=== PATIENT | female | born 1940 | race African-American/Black ===

== ENCOUNTER 2017-01-19 20:36 | Inpatient (IN) | payer OTHER ==
--- NOTE | 2017-01-19 20:52 | PDOC ---
Attending Attestation - Resident Resident Name: Shanel Esposito - HPI HPI: 01/19/17 22:24 Pt comes with discomfort in her epigastric chest area. States that she often gets the pain. Pt is A+Ox3. Pt states that she is in the NH temporarily. Not sure why. She is asking me to speak to her daughter who is a nurse. - Physicial Exam PE: 01/19/17 22:25 Upper abd post surgical ventral hernia. Pt has no flank pain no fever, no abd pain with palpation. Pt has crackles and rales at the bases. - Medical Decision Making 01/19/17 23:26 Pt has elevated BNP; renal insufficiencyl elevated lipase ?pancreatitis. Low ca + and Phosphorous. 01/20/17 22:32 Pt was signed out to the next team to follow labs and disposition the patient.
--- NOTE | 2017-01-19 21:14 | PDOC ---
History of Present Illness - General Chief Complaint: Shortness of Breath Stated Complaint: ANXIETY/SOB Time Seen by Provider: 01/19/17 20:38 History Source: Patient Exam Limitations: No Limitations - History of Present Illness Initial Comments: 76 YOF with h/o ESRD on HD TThSa, distant liver transplant on cyclosporine, CHF , anemia, hypoparathyroidism, vitamin deficiency, and anxiety who is BIBA from her SNF for reported anxiety, with the patient noting chest heaviness and shortness of breath. She states that this is actually her normal baseline and she feels no different than normal. She denies nausea, vomiting, diarrhea, constipation, fever, chills, trouble urinating, headache, or other symptoms. She is largely unhelpful with her medical history and the bulk of her history is obtained from [facility] records. Past History - Past Medical History Allergies/Adverse Reactions: Allergies Allergy/AdvReac Type Severity Reaction Status Date / Time No Known Allergies Allergy Verified 01/19/17 20:38 Home Medications: Ambulatory Orders Amlodipine Besylate 10 mg PO DAILY 01/19/17 Cyclosporine 25 mg PO Q12H 01/19/17 Ergocalciferol (Vitamin D2) [Vitamin D2] 50,000 unit PO TH 01/19/17 Folic Acid 1 mg PO DAILY 01/19/17 Metoprolol Succinate [Toprol Xl -] 25 mg PO Q12H 01/19/17 Multivit,Calc,Mins/Iron/Folic [Therapeutic-M Tablet] 400 mcg PO DAILY 01/19/17 Vitamin B Comp W-C [Nephro-Latoya -] 1 tab PO DAILY 01/19/17 Acetaminophen [Non-Aspirin Pain Relief] 325 mg PO Q6H PRN 01/20/17 Albuterol 0.083% Nebulizer Mckayla [Ventolin 0.083% Nebulizer Soln -] 1 neb NEB Q6H PRN 01/20/17 - Suicide/Smoking/Psychosocial Hx Smoking History: Unknown if ever smoked Have you smoked in the past 12 months: No Information on smoking cessation initiated: No Hx Alcohol Use: No Drug/Substance Use Hx: No Review of Systems - Review of Systems Able to Perform ROS?: Yes Constitutional: No: Chills, Fever, Unexplained wgt Loss HEENTM: No: Nose Congestion, Throat Pain Respiratory: Yes: Cough (mild), Shortness of Breath Cardiac (ROS): Yes: Chest Pain (heaviness). No: Palpitations ABD/GI: No: Constipated, Diarrhea, Nausea, Vomiting : No: Burning, Dysuria Musculoskeletal: No: Back Pain, Neck Pain Integumentary: No: Bruising, Rash Neurological: No: Headache, Numbness, Tingling, Weakness, Dizziness Endocrine: No: Unexplained Weight Gain, Unexplained Weight Loss *Physical Exam - Vital Signs Last Vital Signs Temp Pulse Resp BP Pulse Ox 97.5 F L 67 20 141/76 99 01/20/17 18:00 01/20/17 18:00 01/20/17 18:00 01/20/17 18:00 01/20/17 17:41 - Physical Exam General Appearance: Yes: Nourished, Appropriately Dressed, Mild Distress, Other (elderly chronically ill appearing female who has latency in responding to questions and frequently seems to forget to answer, tachypneic and speaking in 3 word sentences) HEENT: positive: EOMI, Normal Voice, Hearing Grossly Normal. negative: Scleral Icterus (R), Scleral Icterus (L), Nasal Congestion Neck: positive: Trachea midline, Supple. negative: Tender, Rigid Respiratory/Chest: positive: Lungs Clear, Normal Breath Sounds. negative: Respiratory Distress, Crackles, Rhonchi, Stridor, Wheezing Cardiovascular: positive: Regular Rhythm, Regular Rate. negative: Murmur Gastrointestinal/Abdominal: positive: Normal Bowel Sounds, Soft. negative: Tender, Organomegaly, Pulsatile Mass, Guarding Musculoskeletal: positive: Normal Inspection. negative: Decreased Range of Motion, Vertebral Tenderness Extremity: positive: Normal Capillary Refill, Normal Inspection, Normal Range of Motion. negative: Tender, Cyanosis Integumentary: positive: Normal Color, Dry, Warm. negative: Erythema, Rash, Bruising Neurologic: positive: solar sales rep II-XII NML intact, Fully Oriented, Alert, Normal Mood/ Affect, Normal Response, Motor Strength 5/5 Heart Score/ECG Review - History History: Moderately suspicious - Electrocardiogram EKG: Non specific repolarization disturbance - Age Age: >/= 65 - Risk Factors Risk Factors Heart Score: Yes Hx Hypertension Based on the list above the patient has:: 1-2 risk factors - Troponin Troponin: 1-3x normal limit - Score Heart Score - Total: 6 ED Treatment Course - LABORATORY CBC & Chemistry Diagram: 01/20/17 09:30 01/20/17 09:30 - ADDITIONAL ORDERS Additional order review: 01/19/17 21:40 RBC 2.75 L MCV 105.5 H MCHC 32.3 RDW 17.3 H MPV 7.7 Neutrophils % 85.8 H Lymphocytes % 8.2 Monocytes % 5.7 Eosinophils % 0.0 Basophils % 0.3 Medical Decision Making - Medical Decision Making 76 YOF with h/o ESRD on HS TThSa, liver xplant on cyclosporine, CHF, anemia, anxiety. P/W chest heaviness, SOB, anxiety but here in ED patient states she feels this all the time. On exam she has crackles to bilateral bases, large ventral hernia through prior surgical scar. 2/6 systolic murmur, otherwise normal exam. DDX IBNLT CHF exacerbation, ACS, PE, PNA/bronchitis. Ordered is CBCD, CMP, Mg, Phos, cardiac profile, BNP, CXR, UA cx. 01/19/17 23:37 01/19/17 23:38 CXR consistent with CHF exacerbation, sternal wires noted. BNP is >150k, lipase >500, BUN 33, Cr 3.3 Page sent to PCP Yash Manning [facility] provider to discuss admission. 01/20/17 02:24 Spoke with [facility] regarding admission to hospitalist as not able to get in touch with Dr. Manning. Patient becoming intermittently agitated, states feels too hot, rectal temp 98.5 , given a fan. Hospitalists to admit. 01/20/17 07:00 Care passed down to oncoming team. *DC/Admit/Observation/Transfer Diagnosis at time of Disposition: CHF exacerbation Qualifiers: Congestive heart failure type: unspecified congestive heart failure type Qualified Code(s): I50.9 - Heart failure, unspecified - Discharge Dispostion Condition at time of disposition: Guarded Admit: Yes - Referrals - Patient Instructions - Post Discharge Activity
[2017-01-19 21:48] LABS: BASOPHIL 0.3 % (0-2.0); MCH 34.1 pg (25.7-33.7); MCHC 32.3 g/dl (32.0-36.0); MEAN CELL VOLUME 105.5 fl (80-96); MEAN PLT VOLUME 7.7 fl (7.5-11.1); NEUTROPHILS 85.8 % (42.8-82.8); PLATELET COUNT 75 K/MM3 (134-434); RDW 17.3 % (11.6-15.6); WHITE BLOOD COUNT 2.2 K/mm3 (4.0-10.0)
[2017-01-19 22:27] LABS: POIKILOCYTOSIS 1+; POLYCHROMASIA RARE
[2017-01-19 22:28] LABS: MACROCYTOSIS 2+; OVALOCYTE 1+
[2017-01-19 22:31] LABS: ALBUMIN 3.1 g/dl (3.4-5.0); ANION GAP 10 (8-16); CALCIUM 7.6 mg/dL (8.5-10.1); CO2 26 mmol/L (21-32); CREATININE 3.3 mg/dL (0.55-1.02); GLUCOSE,RANDOM 179 mg/dL (74-106); MAGNESIUM 1.9 mg/dL (1.8-2.4); PHOSPHOROUS 2.2 mg/dL (2.5-4.9); SGOT/AST 18 U/L (15-37); SGPT/ALT 29 U/L (12-78)
[2017-01-19 22:49] LABS: ALK PHOS 203 U/L (45-117); BILIRUBIN,TOTAL 0.4 mg/dL (0.2-1.0); CPK 47 IU/L (26-192); TOT PROT 6.3 g/dl (6.4-8.2); TROPONIN I 0.07 ng/ml (0.00-0.05)
--- NOTE | 2017-01-20 03:11 | HP ---
CHIEF COMPLAINT: SOB, Chest Heaviness, Anxiety PCP: Dr. Yash Manning HISTORY OF PRESENT ILLNESS: This is a 76 y/o woman with a past medical history of ESRD (HD- ,, ), CHF , HTN, Hyperparathyroidism, Anemia, Anxiety, Vitamin Deficiency. Who presents to the ED from [facility] with anxiety, SOB, chest heaviness. Patient is a poor historian. Obtained information from ED record and senior living records. Patient denies having chest pain/heaviness, she reports her SOB has decreased since having a fan. Patient denies fever, chills, cough, dizziness, AP , N/V/D, constipation. ER course was notable for: (1) Chest Xray- image vascular congestion (2) BNP [id number] (3) Trop I 0.07 Recent Travel: None PAST MEDICAL HISTORY: See HPI PAST SURGICAL HISTORY: Dialysis Catheter- L- Groin Social History: Smoking: Unknown Alcohol: None Drugs: Nine Family History: Unable to obtain Allergies No Known Allergies Allergy (Verified 01/19/17 20:38) HOME MEDICATIONS: Home Medications Medication Instructions Recorded Amlodipine Besylate 10 mg PO DAILY 01/19/17 Cyclosporine 25 mg PO BID 01/19/17 Ergocalciferol (Vitamin D2) 50,000 unit PO WEEKLY 01/19/17 [Vitamin D2] Folic Acid 1 mg PO DAILY 01/19/17 Metoprolol Succinate [Toprol Xl -] 25 mg PO BID 01/19/17 Multivit,Calc,Mins/Iron/Folic 400 mcg PO DAILY 01/19/17 [Therapeutic-M Tablet] Vitamin B Comp W-C [Nephro-Latoya -] 1 tab PO DAILY 01/19/17 Vitamin B Comp W-C [Nephro-Latoay -] 1 tablet PO DAILY 01/19/17 REVIEW OF SYSTEMS CONSTITUTIONAL: Absent: fever, chills, diaphoresis, generalized weakness, malaise, loss of appetite, weight change HEENT: Absent: rhinorrhea, nasal congestion, throat pain, throat swelling, difficulty swallowing, mouth swelling, ear pain, eye pain, visual changes CARDIOVASCULAR: chest pain Absent: syncope, palpitations, irregular heart rate, lightheadedness, peripheral edema RESPIRATORY: shortness of breath Absent: cough, dyspnea with exertion, orthopnea, wheezing, stridor, hemoptysis GASTROINTESTINAL: abdominal distension Absent: abdominal pain, nausea, vomiting, diarrhea, constipation, melena, hematochezia GENITOURINARY: Absent: dysuria, frequency, urgency, hesitancy, hematuria, flank pain, genital pain MUSCULOSKELETAL: Absent: myalgia, arthralgia, joint swelling, back pain, neck pain SKIN: Absent: rash, itching, pallor HEMATOLOGIC/IMMUNOLOGIC: Absent: easy bleeding, easy bruising, lymphadenopathy, frequent infections ENDOCRINE: Absent: unexplained weight gain, unexplained weight loss, heat intolerance, cold intolerance NEUROLOGIC: Absent: headache, focal weakness or paresthesias, dizziness, unsteady gait, seizure, mental status changes, bladder or bowel incontinence PSYCHIATRIC: Absent: anxiety, depression, suicidal or homicidal ideation, hallucinations. PHYSICAL EXAMINATION Vital Signs - 24 hr 01/19/17 20:39 Temperature 97.7 F Pulse Rate 78 Respiratory 22 Rate Blood Pressure 164/86 O2 Sat by Pulse 99 Oximetry (%) GENERAL: Awake, alert, and oriented x1, with marked confusion, in no acute distress. HEAD: Normal with no signs of trauma. EYES: Pupils equal, round and reactive to light, extraocular movements intact, sclera anicteric, conjunctiva clear. No lid lag. EARS, NOSE, THROAT: Ears normal, nares patent, oropharynx clear without exudates. dry mucous membranes. NECK: Normal range of motion, supple without lymphadenopathy, JVD, or masses. LUNGS: Rales, and crackles scattered to bases. No wheezes, and No accessory muscle use. HEART: Regular rate and rhythm, normal S1 and S2 without murmur, rub or gallop. ABDOMEN: Soft, nontender, normoactive bowel sounds, no guarding, no rebound, no masses. No hepatomegaly or splenomegaly. Distended,ventral hernia to epigastrium MUSCULOSKELETAL: Normal range of motion at all joints. No bony deformities or tenderness. No CVA tenderness. UPPER EXTREMITIES: 2+ pulses, warm, well-perfused. No cyanosis. No clubbing. No peripheral edema. LOWER EXTREMITIES: 2+ pulses, warm, well-perfused. No calf tenderness. No peripheral edema. NEUROLOGICAL: Cranial nerves II-XII intact. Normal speech. Gait not observed. PSYCHIATRIC: Cooperative. Good eye contact. Appropriate mood and affect. SKIN: Warm, dry, normal turgor, no rashes or lesions noted, normal capillary refill. Laboratory Results - last 24 hr 1101/19/17 01/19/17 21:40 21:40 21:40 WBC 2.2 L RBC 2.75 L Hgb 9.4 L Hct 29.0 L MCV 105.5 H MCH 34.1 H MCHC 32.3 RDW 17.3 H Plt Count 75 L MPV 7.7 Neutrophils % 85.8 H Lymphocytes % 8.2 Monocytes % 5.7 Eosinophils % 0.0 Basophils % 0.3 Polychromasia Rare Poikilocytosis 1+ Basophilic Stippling 1+ Macrocytosis 2+ Ovalocytes 1+ Morphology Comment Sodium 130 L Potassium 4.2 Chloride 94 L Carbon Dioxide 26 Anion Gap 10 BUN 33 H Creatinine 3.3 H Creat Clearance w eGFR 13.52 Random Glucose 179 H Calcium 7.6 L Phosphorus 2.2 L Magnesium 1.9 Total Bilirubin 0.4 AST 18 ALT 29 Alkaline Phosphatase 203 H Creatine Kinase 47 Troponin I 0.07 H B-Natriuretic Peptide 534909.54 H Total Protein 6.3 L Albumin 3.1 L Lipase 529 H ASSESSMENT/PLAN: This is a 76 y/o woman with a PMHx of: ESRD (HD-,,), HTN, CHF, Anemia, s/ p Liver Transplant (on cyclosporine). Admitted to Telemetry CHF Exacerbation, Chest Pain for further evaluation of their emergent condition. Plan: 1. CHF Exacerbation - Tele monitoring - Chest Xray- image vascular congestion - EKG- SR with PACs, LVH, nonspecific T wave abnormality, no prior study available for comparison - Appreciate Cardiology Consult - Serial Enzymes - Echo 2. Chest Pain - r/o ACS - HEART Score 5 - Serial Enzymes - Appreciate Cardiology Consult - Continue BB - Asa 3. ESRD - HD (,,) -Appreciate Nephrology Consult - Continue Nephrovite - Avoid Nephrotoxic Agents - Monitor CBC, BMP - Monitor vitals 4. Hypertension - Suboptimal - Monitor BP - Continue Amlodipine, Metoprolol - Monitor renal function 5. Anemia - Hgb 9.4 - Will transfuse if Hgb < 7.0 - Monitor CBC 6. Anxiety - Will continue to monitor and treat with interventions accordingly 7. Hx Liver Transplant - Continue cyclosporine 8. FEN - Fluid Restriction 1L - Replete lytes prn - Renal, Low Na Diet 9. DVT Prophylaxis - OOB - SCDs - Heparin SQ Code Status: HCP, Full Code Dispo: Requires Inpatient Care Problem List - Problem (1) CHF exacerbation Code(s): I50.9 - HEART FAILURE, UNSPECIFIED (2) SOB (shortness of breath) Code(s): R06.02 - SHORTNESS OF BREATH (3) Chest pain Code(s): R07.9 - CHEST PAIN, UNSPECIFIED (4) ESRD (end stage renal disease) Code(s): N18.6 - END STAGE RENAL DISEASE (5) HTN (hypertension) Code(s): I10 - ESSENTIAL (PRIMARY) HYPERTENSION (6) HLD (hyperlipidemia) Code(s): E78.5 - HYPERLIPIDEMIA, UNSPECIFIED (7) Anemia Code(s): D64.9 - ANEMIA, UNSPECIFIED (8) Anxiety Code(s): F41.9 - ANXIETY DISORDER, UNSPECIFIED (9) Hyperparathyroidism Code(s): E21.3 - HYPERPARATHYROIDISM, UNSPECIFIED (10) Vitamin D deficiency Code(s): E55.9 - VITAMIN D DEFICIENCY, UNSPECIFIED (11) Hx of liver transplant Code(s): Z94.4 - LIVER TRANSPLANT STATUS Visit type - Emergency Visit Emergency Visit: Yes ED Registration Date: 01/19/17 Care time: The patient presented to the Emergency Department on the above date and was hospitalized for further evaluation of their emergent condition. - New Patient This patient is new to me today: Yes Date on this admission: 01/20/17 - Critical Care Critical Care patient: No
--- NOTE | 2017-01-20 09:42 | CON.CARD ---
Consult Consult Specialty:: cardio Referred by:: toni Reason for Consultation:: chf - History of Present Illness Chief Complaint: cp, sob History of Present Illness: 76 yo female BIBA to ER from her SNF for reported anxiety. pt noted chest heaviness and shortness of breath. She reported to ER that this is actually her normal baseline and she feels no different than normal. then stated to admitting hospitalist that she had no chest pain/heaviness, and she reported that her SOB has decreased since having a fan tells me that she had upper abd/epigastric pressure yest, which resolved. no more today says she was sob yest, this also resolved. feels comfortable at present. no palpitations, leg swelling PMH: ESRD on HD TThSa, distant liver transplant on cyclosporine, CHF, anemia, hypoparathyroidism, vitamin deficiency, and anxiety denies drug use - Alcohol/Substance Use Hx Alcohol Use: No - Smoking History Smoking history: Unknown if ever smoked Have you smoked in the past 12 months: No Home Medications - Allergies Allergies/Adverse Reactions: Allergies Allergy/AdvReac Type Severity Reaction Status Date / Time No Known Allergies Allergy Verified 01/19/17 20:38 - Home Medications Home Medications: Ambulatory Orders Amlodipine Besylate 10 mg PO DAILY 01/19/17 Cyclosporine 25 mg PO BID 01/19/17 Ergocalciferol (Vitamin D2) [Vitamin D2] 50,000 unit PO WEEKLY 01/19/17 Folic Acid 1 mg PO DAILY 01/19/17 Metoprolol Succinate [Toprol Xl -] 25 mg PO BID 01/19/17 Multivit,Calc,Mins/Iron/Folic [Therapeutic-M Tablet] 400 mcg PO DAILY 01/19/17 Vitamin B Comp W-C [Nephro-Latoya -] 1 tab PO DAILY 01/19/17 Vitamin B Comp W-C [Nephro-Latoya -] 1 tablet PO DAILY 01/19/17 Family Disease History - Family Disease History Family History: Denies (no known cmp) Review of Systems - Review of Systems Constitutional: denies: Chills, Fever Eyes: denies: Eye Pain HENT: denies: Nasal Congestion Neck: denies: Stiffness Cardiovascular: denies: Palpitations Respiratory: denies: Orthopnea, PND Gastrointestinal: denies: Diarrhea, Rectal Bleeding Genitourinary: denies: Burning, Hematuria Musculoskeletal: denies: Muscle Pain Integumentary: denies: Rash Neurological: denies: Numbness, Seizure, Syncope Endocrine: denies: Excessive Sweating Hematology/Lymphatic: denies: Excessive Bleeding Vital Signs: Vital Signs Temperature 97.8 F 01/20/17 07:57 Pulse Rate 68 01/20/17 07:57 Respiratory Rate 18 01/20/17 07:57 Blood Pressure 159/92 01/20/17 07:57 O2 Sat by Pulse Oximetry (%) 97 01/20/17 07:57 Constitutional: Yes: Well Nourished, No Distress Eyes: No: Sclera Icterus HENT: No: Nasal Congestion Neck: No: Decreased ROM Respiratory: Yes: Diminished (bases), Rales (L base). No: Accessory Muscle Use Gastrointestinal: Yes: Normal Bowel Sounds. No: Distention, Hepatomegaly, Palpable Mass, Tenderness Cardiovascular: Yes: Regular Rate and Rhythm JVD: Yes Carotid Bruit: No PMI: Non-Displaced Heart Sounds: Yes: S1, S2. No: Gallop Murmur: Yes: Systolic Murmur (3/6 early peaking rusb; + prob split S2 heard). No: Diastolic Murmur Musculoskeletal: Yes: Other (No kyphosis) Extremities: No: Cool, Cyanosis Edema: No Peripheral Pulses: 2+ Left Carotid, 2+ Right Carotid, 2+ Left Doralis Pedis, 2+ Right Dorsalis Pedis Integumentary: No: Jaundice Neurological: Yes: Alert, Oriented (x3) Psychiatric: No: Agitated - Other Data Labs, Other Data: Troponin, BNP 01/19/17 01/20/17 21:40 09:30 Troponin I 0.07 H Cancelled B-Natriuretic Peptide 009371.54 H Troponin, BNP 01/19/17 01/20/17 21:40 09:30 Troponin I 0.07 H Cancelled B-Natriuretic Peptide 796537.54 H Assessment/Plan CXR: bilat effusions, congestive changes, valve prosthesis, sternal sutures EKG (01/19): NSR, LAFB; acute (on chronic?) chf, unknown type: -bnp 154K, no baseline--not informative in ESRD pt -? acute (vs baseline) sob sx's--pt unreliable historian -volume removal per renal (via HD) -check echo -troponins 0.07-->0.08 = intermediate range with flat trend which is not c/w AMI ) -defer stress test given atypical sx present (epig pressure) and ? was due to chf--observe for recurrent sx's h/o sternotomy, valve prosthesis on cxr: -no mechanical click -not on AC in NH -syst ejection murmur, doubt severe on exam -f/u echo HTN: -bp subpotimally controlled -cont home amlodipine -observe bp trend with volume removal ESRD on HD: -dialysis schedule per renal pancytopenia: -? baseline -per pmd s/p liver transplant -on cyclosporine -alk phos high, remainder WNL -per pmd and/or her GI
[2017-01-20 09:43] LABS: BASOPHIL 1.4 % (0-2.0); EOSINOPHIL 0.2 % (0-4.5); MCH 33.8 pg (25.7-33.7); MCHC 31.9 g/dl (32.0-36.0); MEAN CELL VOLUME 105.9 fl (80-96); MEAN PLT VOLUME 7.2 fl (7.5-11.1); NEUTROPHILS 72.8 % (42.8-82.8); PLATELET COUNT 69 K/MM3 (134-434); RDW 17.4 % (11.6-15.6); WHITE BLOOD COUNT 3.2 K/mm3 (4.0-10.0)
[2017-01-20 10:09] LABS: ANION GAP 8 (8-16); CALCIUM 7.6 mg/dL (8.5-10.1); CHOLESTEROL 153 mg/dL (50-200); CO2 27 mmol/L (21-32); CPK 32 IU/L (26-192); CREATININE 3.8 mg/dL (0.55-1.02); GLUCOSE,RANDOM 108 mg/dL (74-106); PHOSPHOROUS 2.6 mg/dL (2.5-4.9)
[2017-01-20 10:12] LABS: TROPONIN I 0.08 ng/ml (0.00-0.05)
[2017-01-20] MEDS: cycloSPORINE MICROEMULSION (MODIFIED) 25 MG CAPSULE PO SCH ×2 (10:32→22:29)
[2017-01-20] MEDS: FOLIC ACID 1 MG TABLET (FP) PO SCH (10:32)
[2017-01-20] MEDS: VITAMIN B COMP W-C 1 EA TABLET PO SCH (10:33)
[2017-01-20] MEDS: METOPROLOL SUCCINATE 25 MG TAB.SR.24H (FP) PO SCH ×2 (10:33→22:29)
[2017-01-20] MEDS: amLODIPine BESYLATE 10 MG TABLET (FP) PO SCH (10:33)
[2017-01-20] MEDS: MULTIVITAMINS THER W-MINERALS COMBO TABLET (FP) PO SCH (10:33)
--- NOTE | 2017-01-20 14:31 | CONSULT ---
Consult Consult Specialty:: Nephrology Reason for Consultation:: ESRD - History of Present Illness Chief Complaint: chest heaviness History of Present Illness: Pt is a 76 year old female with pmhx of ESRD on HD TTS, liver transplant, CHF, anemia and anxiety who presents to the ER with chest heaviness and shortness of breath. I was called to evaluate her as she is on HD. She currently says she feels well. She denies shortness of breath. She denies lower ext edema. Her last HD was on Friday. She denies fevers or chills. She says she feels better than she did yesterday. Pt is a poor historian. - History Source History Provided By: Patient, Medical Record - Past Medical History Cardio/Vascular: Yes: CHF, HTN Hepatobiliary: Yes: Cirrhosis, Other (liver transplant) Renal/: Yes: Hemodialysis Heme/Onc: Yes: Anemia Psych: Yes: Anxiety - Alcohol/Substance Use Hx Alcohol Use: No - Smoking History Smoking history: Unknown if ever smoked Have you smoked in the past 12 months: No Home Medications - Allergies Allergies/Adverse Reactions: Allergies Allergy/AdvReac Type Severity Reaction Status Date / Time No Known Allergies Allergy Verified 01/19/17 20:38 - Home Medications Home Medications: Ambulatory Orders Amlodipine Besylate 10 mg PO DAILY 01/19/17 Cyclosporine 25 mg PO BID 01/19/17 Ergocalciferol (Vitamin D2) [Vitamin D2] 50,000 unit PO WEEKLY 01/19/17 Folic Acid 1 mg PO DAILY 01/19/17 Metoprolol Succinate [Toprol Xl -] 25 mg PO BID 01/19/17 Multivit,Calc,Mins/Iron/Folic [Therapeutic-M Tablet] 400 mcg PO DAILY 01/19/17 Vitamin B Comp W-C [Nephro-Latoya -] 1 tab PO DAILY 01/19/17 Vitamin B Comp W-C [Nephro-Latoya -] 1 tablet PO DAILY 01/19/17 Family Disease History - Family Disease History Family History: Unable to Obtain Review of Systems - Review of Systems Constitutional: reports: Malaise Eyes: reports: No Symptoms HENT: reports: No Symptoms Neck: reports: No Symptoms Cardiovascular: reports: Chest Pain, Shortness of Breath. denies: Edema Respiratory: reports: SOB Gastrointestinal: reports: No Symptoms Genitourinary: reports: No Symptoms Musculoskeletal: reports: No Symptoms Integumentary: reports: No Symptoms Neurological: reports: No Symptoms Physical Exam Vital Signs: Vital Signs Temperature 97.8 F 01/20/17 07:57 Pulse Rate 68 01/20/17 07:57 Respiratory Rate 18 01/20/17 07:57 Blood Pressure 159/92 01/20/17 07:57 O2 Sat by Pulse Oximetry (%) 97 01/20/17 07:57 Constitutional: Yes: Calm Eyes: Yes: Conjunctiva Clear HENT: Yes: Atraumatic Neck: Yes: Supple Cardiovascular: Yes: S1, S2 Respiratory: Yes: CTA Bilaterally Gastrointestinal: Yes: Soft Renal/: Yes: WNL Extremities: Yes: WNL Edema: No Neurological: Yes: Oriented Psychiatric: Yes: Oriented Labs: CBC, BMP 01/20/17 09:30 01/20/17 09:30 Laboratory Tests 01/19/17 01/19/17 01/20/17 21:40 21:40 09:30 WBC 2.2 L 3.2 L D Hgb 9.4 L 8.8 L Sodium Potassium 4.2 Chloride Carbon Dioxide Anion Gap BUN 33 H Creatinine 3.3 H 01/20/17 09:30 WBC Hgb Sodium 130 L Potassium 4.3 Chloride 95 L Carbon Dioxide 27 Anion Gap 8 BUN 38 H Creatinine 3.8 H Imaging - Results Chest X-ray: Report Reviewed Problem List - Problems (1) Anemia Code(s): D64.9 - ANEMIA, UNSPECIFIED (2) Anxiety Code(s): F41.9 - ANXIETY DISORDER, UNSPECIFIED (3) ESRD (end stage renal disease) Code(s): N18.6 - END STAGE RENAL DISEASE (4) HLD (hyperlipidemia) Code(s): E78.5 - HYPERLIPIDEMIA, UNSPECIFIED (5) HTN (hypertension) Code(s): I10 - ESSENTIAL (PRIMARY) HYPERTENSION Assessment/Plan Current Medications Generic Name Dose Route Start Last Admin Trade Name Freq PRN Reason Stop Dose Admin Amlodipine Besylate 10 mg 01/20/17 10:00 01/20/17 10:33 Norvasc - PO 10 mg DAILY DAYANA Administration Cyclosporine 25 mg 01/20/17 10:00 01/20/17 10:32 Neoral PO 25 mg BID DAYANA Administration Folic Acid 1 mg 01/20/17 10:00 01/20/17 10:32 Folic Acid - PO 1 mg DAILY DAYANA Administration Metoprolol Succinate 25 mg 01/20/17 10:00 01/20/17 10:33 Toprol Xl - PO 25 mg BID DAYANA Administration Multivit/Ca Carb/B Cmplx/FA/Prenat 1 tablet 01/20/17 10:00 01/20/17 10:33 Nephro-Latoya - PO 1 tablet DAILY DAYANA Administration Multivitamins/Minerals 1 each 01/20/17 10:00 01/20/17 10:33 Theragran-M PO 1 each DAILY DAYANA Administration Impression 1. ESRD 2. CHF 3. HTN 4. anxiety 5. anemia 6. liver transplant on cyclosporine Plan - HD in am - pt received aranesp for anemia as outpt - cardio eval appreciated - HD access permacath, 3.5 hrs, 1000 heparin bolus and 500 maintenance - will follow Dr Vargas
--- NOTE | 2017-01-20 17:30 | EKG ---
Test Reason : Blood Pressure : / mmHG Vent. Rate : 075 BPM Atrial Rate : 075 BPM P-R Int : 144 ms QRS Dur : 082 ms QT Int : 402 ms P-R-T Axes : 035 -36 088 degrees QTc Int : 448 ms SINUS RHYTHM WITH PREMATURE ATRIAL COMPLEXES POSSIBLE LEFT ATRIAL ENLARGEMENT LEFT AXIS DEVIATION LEFT VENTRICULAR HYPERTROPHY NONSPECIFIC T WAVE ABNORMALITY ABNORMAL ECG NO PREVIOUS ECGS AVAILABLE Confirmed by TROY MARIE MD ([id number]) on 01/20/2017 5:30:17 PM Referred By: Confirmed By:TROY MARIE MD
[2017-01-21] MEDS ORDERED: PT OWN MED DRAWER 7, Y5N ONE ×3 (09:17→23:48)
[2017-01-21] MEDS: MULTIVITAMINS THER W-MINERALS COMBO TABLET (FP) PO SCH (09:33)
[2017-01-21] MEDS: amLODIPine BESYLATE 10 MG TABLET (FP) PO SCH (09:33)
[2017-01-21] MEDS: FOLIC ACID 1 MG TABLET (FP) PO SCH (09:33)
[2017-01-21] MEDS: METOPROLOL SUCCINATE 25 MG TAB.SR.24H (FP) PO SCH ×2 (09:33→23:50)
[2017-01-21] MEDS: VITAMIN B COMP W-C 1 EA TABLET PO SCH (09:33)
[2017-01-21] MEDS: cycloSPORINE MICROEMULSION (MODIFIED) 25 MG CAPSULE PO SCH ×3 (10:54→23:50)
--- NOTE | 2017-01-21 11:25 | PN ---
Progress Note, Physician Chief Complaint: Denies SOB, chest pain lying in bed, comfortable - Current Medication List Current Medications: Active Medications Amlodipine Besylate (Norvasc -) 10 mg PO DAILY [facility] Last Admin: 01/21/17 09:33 Dose: 10 mg Cyclosporine (Neoral) 25 mg PO BID [facility] Last Admin: 01/21/17 10:54 Dose: Not Given Folic Acid (Folic Acid -) 1 mg PO DAILY [facility] Last Admin: 01/21/17 09:33 Dose: 1 mg Heparin Sodium (Porcine) (Heparin -) 1,000 unit IVPUSH ONCE ONE Stop: 01/21/17 14:36 Heparin Sodium (Porcine) (Heparin -) 500 unit IVPUSH Q1H [facility] Stop: 01/21/17 16:46 Metoprolol Succinate (Toprol Xl -) 25 mg PO BID [facility] Last Admin: 01/21/17 09:33 Dose: 25 mg Multivit/Ca Carb/B Cmplx/FA/Prenat (Nephro-Latoya -) 1 tablet PO DAILY [facility] Last Admin: 01/21/17 09:33 Dose: 1 tablet Multivitamins/Minerals (Theragran-M) 1 each PO DAILY [facility] Last Admin: 01/21/17 09:33 Dose: 1 each Paricalcitol (Zemplar -) 2 mcg IVPUSH ONCE ONE Stop: 01/21/17 14:36 - Objective Vital Signs: Vital Signs Temperature 97.6 F 01/21/17 10:00 Pulse Rate 78 01/21/17 10:00 Respiratory Rate 20 01/21/17 10:00 Blood Pressure 152/78 01/21/17 10:00 O2 Sat by Pulse Oximetry (%) 100 01/21/17 09:00 Constitutional: Yes: No Distress Cardiovascular: Yes: Regular Rate and Rhythm Respiratory: Yes: Diminished. No: Rales, Rhonchi Gastrointestinal: Yes: Normal Bowel Sounds, Soft, Abdomen, Obese. No: Distention, Tenderness Edema: No Labs: CBC, BMP 01/20/17 09:30 01/20/17 09:30 Problem List - Problems (1) Anemia Code(s): D64.9 - ANEMIA, UNSPECIFIED (2) Anxiety Code(s): F41.9 - ANXIETY DISORDER, UNSPECIFIED (3) CHF exacerbation Code(s): I50.9 - HEART FAILURE, UNSPECIFIED (4) Chest pain Code(s): R07.9 - CHEST PAIN, UNSPECIFIED (5) ESRD (end stage renal disease) Code(s): N18.6 - END STAGE RENAL DISEASE Assessment/Plan PLAN dialysis today continue with meds may need transfusion PT eval cardiology and Renal eval noted
--- NOTE | 2017-01-21 12:49 | PN ---
Progress Note (short form) - Note Progress Note: CC: CP S: worsened abdominal discomfort. no cp, palps, dizziness, sob Current Medications Amlodipine Besylate (Norvasc -) 10 mg PO DAILY [facility] Last Admin: 01/21/17 09:33 Dose: 10 mg Cyclosporine (Neoral) 25 mg PO BID [facility] Last Admin: 01/21/17 10:54 Dose: Not Given Folic Acid (Folic Acid -) 1 mg PO DAILY [facility] Last Admin: 01/21/17 09:33 Dose: 1 mg Heparin Sodium (Porcine) (Heparin -) 1,000 unit IVPUSH ONCE ONE Stop: 01/21/17 14:36 Heparin Sodium (Porcine) (Heparin -) 500 unit IVPUSH Q1H [facility] Stop: 01/21/17 16:46 Metoprolol Succinate (Toprol Xl -) 25 mg PO BID [facility] Last Admin: 01/21/17 09:33 Dose: 25 mg Multivit/Ca Carb/B Cmplx/FA/Prenat (Nephro-Latoya -) 1 tablet PO DAILY [facility] Last Admin: 01/21/17 09:33 Dose: 1 tablet Multivitamins/Minerals (Theragran-M) 1 each PO DAILY [facility] Last Admin: 01/21/17 09:33 Dose: 1 each Paricalcitol (Zemplar -) 2 mcg IVPUSH ONCE ONE Stop: 01/21/17 14:36 Vital Signs - 24 hr 01/20/17 01/20/17 01/20/17 14:56 15:05 16:38 Temperature 97.8 F Pulse Rate 72 80 Pulse Rate [ 70 Radial] Respiratory 20 14 22 Rate Blood Pressure 171/92 150/70 Blood Pressure 157/81 [Left Arm] O2 Sat by Pulse 98 99 Oximetry (%) 01/20/17 01/20/17 01/20/17 17:41 18:00 21:00 Temperature 97.5 F L 97.8 F Pulse Rate 67 72 Pulse Rate [ Radial] Respiratory 20 20 Rate Blood Pressure 141/76 151/70 Blood Pressure [Left Arm] O2 Sat by Pulse 99 100 Oximetry (%) 01/21/17 01/21/17 01/21/17 01:00 05:00 09:00 Temperature 98.5 F 98.2 F Pulse Rate 66 64 Pulse Rate [ Radial] Respiratory 20 20 Rate Blood Pressure 156/89 150/78 Blood Pressure [Left Arm] O2 Sat by Pulse 100 Oximetry (%) 01/21/17 10:00 Temperature 97.6 F Pulse Rate 78 Pulse Rate [ Radial] Respiratory 20 Rate Blood Pressure 152/78 Blood Pressure [Left Arm] O2 Sat by Pulse Oximetry (%) Intake & Output 01/19/17 01/20/17 01/21/17 01/22/17 07:59 07:59 07:59 07:59 Intake Total 120 Balance 120 Weight 113 lb 120 lb 6.4 oz Constitutional: Yes: Well Nourished, No Distress Eyes: No: Sclera Icterus HENT: No: Nasal Congestion Neck: No: Decreased ROM Respiratory: Yes: Diminished (bases), Rales (L base). No: Accessory Muscle Use Gastrointestinal: Yes: Normal Bowel Sounds. + Distention, + epigastric tenderness, No Hepatomegaly, Palpable Mass, Cardiovascular: Yes: Regular Rate and Rhythm JVD: Yes Carotid Bruit: No PMI: Non-Displaced Heart Sounds: Yes: S1, S2. No: Gallop Murmur: Yes: Systolic Murmur (3/6 early peaking rusb; + prob split S2 heard). No: Diastolic Murmur Musculoskeletal: Yes: Other (No kyphosis) Extremities: No: Cool, Cyanosis Edema: No Peripheral Pulses: 2+ Left Carotid, 2+ Right Carotid, 2+ Left Doralis Pedis, 2+ Right Dorsalis Pedis Integumentary: No: Jaundice Neurological: Yes: Alert, Oriented (x3) Psychiatric: No: Agitated - Other Data Labs, Other Data: CBC, BMP 01/20/17 09:30 01/20/17 09:30 Laboratory Tests 01/19/17 01/19/17 01/19/17 21:40 21:40 21:40 Plt Count 75 L Magnesium Total Bilirubin 0.4 AST 18 ALT 29 Alkaline Phosphatase 203 H Troponin I 0.07 H Triglycerides Cholesterol Total LDL Cholesterol HDL Cholesterol Lipase 529 H 01/20/17 09:30 Plt Count Magnesium 2.0 Total Bilirubin AST ALT Alkaline Phosphatase Troponin I 0.08 H Triglycerides 44 Cholesterol 153 Total LDL Cholesterol 47 HDL Cholesterol 98 H Lipase EKG (01/19): NSR, LAFB; tele: sr, rare pvc's. Assessment/Plan CXR: bilat effusions, congestive changes, valve prosthesis, sternal sutures echo: nl lv/rv. sev lae. 1= cyrus. mild-mod mac with functional ms. mod mr. severe tr. sev phtn. bioavr, well seated. mod pr. 76 yo ESRD on HD TThSa, distant liver transplant on cyclosporine with thrombocytopenia, CHF, anemia, hypoparathyroidism, vitamin deficiency, and anxiety female BIBA to ER from her SNF for reported anxiety/chest heaviness/ epigastric discomfort, sob. acute (on chronic?) chf, unknown type: -bnp 154K, no baseline--not informative in ESRD pt -? acute (vs baseline) sob sx's--pt unreliable historian -volume removal per renal (via HD) -check echo -troponins 0.07-->0.08 = intermediate range with flat trend which is not c/w AMI ) -defer stress test given atypical sx present (epig pressure) and ? was due to chf--observe for recurrent sx's - lipase elevated. 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 severe phtn/TR --> cirrhosis? h/o sternotomy, valve prosthesis on cxr: -no mechanical click -not on AC in NH -bioavr well seated on echo HTN: -cont home amlodipine, metoprolol -observe bp trend with volume removal ESRD on HD: -dialysis schedule per renal pancytopenia: -? baseline -per pmd s/p liver transplant -on cyclosporine -alk phos high, remainder WNL -per pmd and/or her GI
[2017-01-21] MEDS ORDERED: PARICALCITOL 5 MCG/ML VIAL IVPUSH ONE (14:35)
[2017-01-21] MEDS ORDERED: HEPARIN NA (PORCINE) 5,000 UNITS/ML 1ML VIAL IVPUSH ONE (14:35)
--- NOTE | 2017-01-21 14:58 | PN ---
Progress Note, Physician History of Present Illness: Pt seen and examined at bedside. She is awake and alert. She complains of left upper quad pain. She denies shortness of breath. She denies palpitations. - Current Medication List Current Medications: Active Medications Amlodipine Besylate (Norvasc -) 10 mg PO DAILY [facility] Last Admin: 01/21/17 09:33 Dose: 10 mg Cyclosporine (Neoral) 25 mg PO BID [facility] Last Admin: 01/21/17 10:54 Dose: Not Given Folic Acid (Folic Acid -) 1 mg PO DAILY [facility] Last Admin: 01/21/17 09:33 Dose: 1 mg Heparin Sodium (Porcine) (Heparin -) 500 unit IVPUSH Q1H [facility] Stop: 01/21/17 16:46 Metoprolol Succinate (Toprol Xl -) 25 mg PO BID [facility] Last Admin: 01/21/17 09:33 Dose: 25 mg Multivit/Ca Carb/B Cmplx/FA/Prenat (Nephro-Latoya -) 1 tablet PO DAILY [facility] Last Admin: 01/21/17 09:33 Dose: 1 tablet Multivitamins/Minerals (Theragran-M) 1 each PO DAILY [facility] Last Admin: 01/21/17 09:33 Dose: 1 each - Objective Vital Signs: Vital Signs Temperature 97.6 F 01/21/17 10:00 Pulse Rate 78 01/21/17 10:00 Respiratory Rate 20 01/21/17 10:00 Blood Pressure 152/78 01/21/17 10:00 O2 Sat by Pulse Oximetry (%) 100 01/21/17 09:00 Constitutional: Yes: Calm Eyes: Yes: Conjunctiva Clear HENT: Yes: Atraumatic Neck: Yes: Supple Cardiovascular: Yes: S1, S2 Respiratory: Yes: CTA Bilaterally, On Nasal O2 Gastrointestinal: Yes: Normal Bowel Sounds, Soft Genitourinary: Yes: WNL Musculoskeletal: Yes: WNL Edema: No Neurological: Yes: Oriented Psychiatric: Yes: Oriented Labs: CBC, BMP 01/20/17 09:30 01/20/17 09:30 Problem List - Problems (1) Anemia Code(s): D64.9 - ANEMIA, UNSPECIFIED (2) Anxiety Code(s): F41.9 - ANXIETY DISORDER, UNSPECIFIED (3) ESRD (end stage renal disease) Code(s): N18.6 - END STAGE RENAL DISEASE (4) HLD (hyperlipidemia) Code(s): E78.5 - HYPERLIPIDEMIA, UNSPECIFIED (5) HTN (hypertension) Code(s): I10 - ESSENTIAL (PRIMARY) HYPERTENSION Assessment/Plan Current Medications Generic Name Dose Route Start Last Admin Trade Name Luca PRN Reason Stop Dose Admin Amlodipine Besylate 10 mg 01/20/17 10:00 01/21/17 09:33 Norvasc - PO 10 mg DAILY [facility] Administration Cyclosporine 25 mg 01/20/17 10:00 01/21/17 10:54 Neoral PO Not Given BID [facility] Folic Acid 1 mg 01/20/17 10:00 01/21/17 09:33 Folic Acid - PO 1 mg DAILY [facility] Administration Heparin Sodium (Porcine) 500 unit 01/21/17 14:45 Heparin - IVPUSH 01/21/17 16:46 Q1H [facility] Metoprolol Succinate 25 mg 01/20/17 10:00 01/21/17 09:33 Toprol Xl - PO 25 mg BID [facility] Administration Multivit/Ca Carb/B Cmplx/FA/Prenat 1 tablet 01/20/17 10:00 01/21/17 09:33 Nephro-Latoya - PO 1 tablet DAILY [facility] Administration Multivitamins/Minerals 1 each 01/20/17 10:00 01/21/17 09:33 Theragran-M PO 1 each DAILY [facility] Administration Impression 1. ESRD 2. CHF 3. HTN 4. anxiety 5. anemia 6. liver transplant on cyclosporine Plan - pt is going for HD today - cardiology input appreciated - cont current meds - will UF volume on HD - abdominal discomfort persists but is mild - HD access permacath, 3.5 hrs, 1000 heparin bolus and 500 maintenance - will follow Dr Vargas
[2017-01-21] MEDS: HEPARIN NA (PORCINE) 5,000 UNITS/ML 1ML VIAL IVPUSH SCH ×3 (19:30→21:30)
[2017-01-21 20:11] LABS: MCH 34.3 pg (25.7-33.7); MCHC 32.4 g/dl (32.0-36.0); MEAN CELL VOLUME 105.9 fl (80-96); MEAN PLT VOLUME 8.2 fl (7.5-11.1); PLATELET COUNT 83 K/MM3 (134-434); RDW 17.6 % (11.6-15.6); WHITE BLOOD COUNT 2.8 K/mm3 (4.0-10.0)
[2017-01-21 21:02] LABS: ANION GAP 8 (8-16); CALCIUM 7.3 mg/dL (8.5-10.1); CO2 25 mmol/L (21-32); GLUCOSE,RANDOM 174 mg/dL (74-106)
[2017-01-21 21:03] LABS: CREATININE 4.8 mg/dL (0.55-1.02)
[2017-01-22 00:04] LABS: ALBUMIN 3.1 g/dl (3.4-5.0); ALK PHOS 193 U/L (45-117); ANION GAP 11 (8-16); BILIRUBIN,TOTAL 0.4 mg/dL (0.2-1.0); CALCIUM 7.4 mg/dL (8.5-10.1); CO2 31 mmol/L (21-32); CREATININE 1.5 mg/dL (0.55-1.02); GLUCOSE,RANDOM 164 mg/dL (74-106); SGOT/AST 11 U/L (15-37); SGPT/ALT 22 U/L (12-78)
[2017-01-22 07:56] LABS: ANION GAP 9 (8-16); CO2 30 mmol/L (21-32); CREATININE 2.4 mg/dL (0.55-1.02); GLUCOSE,RANDOM 78 mg/dL (74-106)
[2017-01-22] MEDS ORDERED: PT OWN MED DRAWER 7, Y5N ONE (09:08)
[2017-01-22] MEDS: VITAMIN B COMP W-C 1 EA TABLET PO SCH (09:11)
[2017-01-22] MEDS: amLODIPine BESYLATE 10 MG TABLET (FP) PO SCH (09:11)
[2017-01-22] MEDS: FOLIC ACID 1 MG TABLET (FP) PO SCH (09:11)
[2017-01-22] MEDS: METOPROLOL SUCCINATE 25 MG TAB.SR.24H (FP) PO SCH (09:11)
[2017-01-22] MEDS: MULTIVITAMINS THER W-MINERALS COMBO TABLET (FP) PO SCH (09:11)
[2017-01-22] MEDS: cycloSPORINE MICROEMULSION (MODIFIED) 25 MG CAPSULE PO SCH (09:12)
--- NOTE | 2017-01-22 11:33 | PN ---
Progress Note (short form) - Note Progress Note: CC: CP S: +abdominal discomfort but less today. no cp, palps, dizziness, sob Current Medications Generic Name Dose Route Start Last Admin Trade Name Luca PRN Reason Stop Dose Admin Amlodipine Besylate 10 mg 01/20/17 10:00 01/22/17 09:11 Norvasc - PO 10 mg DAILY [facility] Administration Cyclosporine 25 mg 01/20/17 10:00 01/22/17 09:12 Neoral PO 25 mg BID [facility] Administration Folic Acid 1 mg 01/20/17 10:00 01/22/17 09:11 Folic Acid - PO 1 mg DAILY [facility] Administration Metoprolol Succinate 25 mg 01/20/17 10:00 01/22/17 09:11 Toprol Xl - PO 25 mg BID [facility] Administration Multivit/Ca Carb/B Cmplx/FA/Prenat 1 tablet 01/20/17 10:00 01/22/17 09:11 Nephro-Latoya - PO 1 tablet DAILY [facility] Administration Multivitamins/Minerals 1 each 01/20/17 10:00 01/22/17 09:11 Theragran-M PO 1 each DAILY [facility] Administration Vital Signs Period Temp Pulse Resp BP Sys/Rocha Pulse Ox Last 24 Hr 97.7 F-98.5 F 63-179 18-20 118-164/60-95 97-100 Constitutional: Yes: Well Nourished, No Distress Eyes: No: Sclera Icterus HENT: No: Nasal Congestion Respiratory: Yes:cta bl nl eff Gastrointestinal: Yes: Normal Bowel Sounds. + Distention, + epigastric tenderness, No Hepatomegaly, Palpable Mass, Cardiovascular: Yes: Regular Rate and Rhythm Carotid Bruit: No Heart Sounds: Yes: S1, S2. No: Gallop Murmur: Yes: Systolic Murmur (3/6 early peaking rusb; + prob split S2 heard). No: Diastolic Murmur Extremities: No: Cool, Cyanosis Edema: No Integumentary: No: Jaundice diaphoresis Neurological: Yes: Alert, Oriented (x3) Psychiatric: No: Agitated - Other Data Labs, Other Data: CBC, BMP 01/21/17 19:30 01/22/17 05:20 EKG (01/19): NSR, LAFB; tele: sr CXR: bilat effusions, congestive changes, valve prosthesis, sternal sutures echo: nl lv/rv. sev lae. 1= cyrus. mild-mod mac with functional ms. mod mr. severe tr. sev phtn. bioavr, well seated. mod pr. a/p: 76 yo ESRD on HD TThSa, distant liver transplant on cyclosporine with thrombocytopenia, CHF, anemia, hypoparathyroidism, vitamin deficiency, and anxiety female BIBA to ER from her SNF for reported anxiety/chest heaviness/ epigastric discomfort, sob. acute (on chronic?) chf, unknown type: -bnp 154K, no baseline--not informative in ESRD pt -? acute (vs baseline) sob sx's--pt unreliable historian -volume removal per renal (via HD) -troponins 0.07-->0.08 = intermediate range with flat trend which is not c/w AMI -defer stress test given atypical sx present (epig pressure) and ? was due to chf--observe for recurrent sx's - likely functional ms --> hr controlled. severe phtn/TR --> cirrhosis? bio avr: -bioavr well seated on echo HTN: -cont home amlodipine, metoprolol ESRD on HD: -dialysis schedule per renal s/p liver transplant -on cyclosporine -alk phos high, remainder WNL -per pmd and/or her GI cardiac ludwig stable, can dc tele
--- NOTE | 2017-01-22 11:52 | DS ---
Physical Examination Vital Signs: Vital Signs Temperature 97.7 F 01/22/17 08:09 Pulse Rate 65 01/22/17 08:09 Respiratory Rate 20 01/22/17 08:09 Blood Pressure 130/60 01/22/17 08:09 O2 Sat by Pulse Oximetry (%) 97 01/22/17 08:12 Constitutional: Yes: No Distress, Calm Cardiovascular: Yes: Regular Rate and Rhythm, Murmur Respiratory: Yes: CTA Bilaterally Gastrointestinal: Yes: Normal Bowel Sounds, Soft, Abdomen, Obese. No: Distention, Tenderness Edema: No Labs: CBC, BMP 01/21/17 19:30 01/22/17 05:20 Discharge Summary Reason For Visit: ACUTE ON CHRONIC CONGESTION HEART FAILURE (CHF) Current Active Problems Anemia (Acute) Anxiety (Acute) CHF exacerbation (Acute) CHF exacerbation (Acute) Chest pain (Acute) Chest pain as manifestation of blood transfusion reaction (Acute) ESRD (end stage renal disease) (Acute) HLD (hyperlipidemia) (Acute) HTN (hypertension) (Acute) Hx of liver transplant (Acute) Hyperparathyroidism (Acute) SOB (shortness of breath) (Acute) Vitamin D deficiency (Acute) Hospital Course: HISTORY OF PRESENT ILLNESS: This is a 76 y/o woman with a past medical history of ESRD (HD- ,, ), CHF , HTN, Hyperparathyroidism, Anemia, Anxiety, Vitamin Deficiency. Who presents to the ED from [facility] with anxiety, SOB, chest heaviness. Patient is a poor historian. Obtained information from ED record and [facility] records. Patient denies having chest pain/heaviness, she reports her SOB has decreased since having a fan. Patient denies fever, chills, cough, dizziness, AP , N/V/D, constipation. ER course was notable for: (1) Chest Xray- image vascular congestion (2) BNP [id number] (3) Trop I 0.07 HOSPITALIZATION COURSE Pt was seen by Traffic Law Attorney and Renal Dialysed [place] better Echo -- s/p bioprosthetic valve, well seated Stress test not rec Volume status is euvolemic now No chest pain or SOB had abdominal pain yesterday but better after having a bm today feels well, no abdominal pain , SOB or chest pain . Stable for dc to NH Condition: Improved - Instructions Disposition: NURSING HOME FACILITY - Home Medications Comprehensive Discharge Medication List: Ambulatory Orders Amlodipine Besylate 10 mg PO DAILY 11/12/17 Cyclosporine 25 mg PO Q12H 01/19/17 Ergocalciferol (Vitamin D2) [Vitamin D2] 50,000 unit PO TH 01/19/17 Folic Acid 1 mg PO DAILY 01/19/17 Metoprolol Succinate [Toprol Xl -] 25 mg PO Q12H 01/19/17 Multivit,Calc,Mins/Iron/Folic [Therapeutic-M Tablet] 400 mcg PO DAILY 01/19/17 Vitamin B Comp W-C [Nephro-Latoya -] 1 tab PO DAILY 01/19/17 Acetaminophen [Non-Aspirin Pain Relief] 325 mg PO Q6H PRN 01/20/17 Albuterol 0.083% Nebulizer Mckayla [Ventolin 0.083% Nebulizer Soln -] 1 neb NEB Q6H PRN 01/20/17
--- NOTE | 2017-01-22 12:17 | PN ---
Progress Note, Physician History of Present Illness: Pt seen and examined at bedside. She is awake and alert. She feels that the abdominal pain is improved. She tolerated HD yesterday. She is tolerating diet. - Current Medication List Current Medications: Active Medications Amlodipine Besylate (Norvasc -) 10 mg PO DAILY [facility] Last Admin: 01/22/17 09:11 Dose: 10 mg Cyclosporine (Neoral) 25 mg PO BID [facility] Last Admin: 01/22/17 09:12 Dose: 25 mg Folic Acid (Folic Acid -) 1 mg PO DAILY [facility] Last Admin: 01/22/17 09:11 Dose: 1 mg Metoprolol Succinate (Toprol Xl -) 25 mg PO BID [facility] Last Admin: 01/22/17 09:11 Dose: 25 mg Multivit/Ca Carb/B Cmplx/FA/Prenat (Nephro-Latoya -) 1 tablet PO DAILY [facility] Last Admin: 01/22/17 09:11 Dose: 1 tablet Multivitamins/Minerals (Theragran-M) 1 each PO DAILY [facility] Last Admin: 01/22/17 09:11 Dose: 1 each - Objective Vital Signs: Vital Signs Temperature 97.7 F 01/22/17 08:09 Pulse Rate 65 01/22/17 08:09 Respiratory Rate 20 01/22/17 08:09 Blood Pressure 130/60 01/22/17 08:09 O2 Sat by Pulse Oximetry (%) 97 01/22/17 08:12 Constitutional: Yes: Calm Eyes: Yes: Conjunctiva Clear HENT: Yes: Atraumatic Neck: Yes: Supple Cardiovascular: Yes: S1, S2 Respiratory: Yes: CTA Bilaterally Gastrointestinal: Yes: Soft Genitourinary: Yes: WNL Musculoskeletal: Yes: WNL Extremities: Yes: WNL Edema: No Neurological: Yes: Oriented Psychiatric: Yes: Oriented Labs: CBC, BMP 01/21/17 19:30 01/22/17 05:20 Problem List - Problems (1) Anemia Code(s): D64.9 - ANEMIA, UNSPECIFIED (2) Anxiety Code(s): F41.9 - ANXIETY DISORDER, UNSPECIFIED (3) ESRD (end stage renal disease) Code(s): N18.6 - END STAGE RENAL DISEASE (4) HLD (hyperlipidemia) Code(s): E78.5 - HYPERLIPIDEMIA, UNSPECIFIED (5) HTN (hypertension) Code(s): I10 - ESSENTIAL (PRIMARY) HYPERTENSION Assessment/Plan Current Medications Generic Name Dose Route Start Last Admin Trade Name Luca PRN Reason Stop Dose Admin Amlodipine Besylate 10 mg 01/20/17 10:00 01/22/17 09:11 Norvasc - PO 10 mg DAILY [facility] Administration Cyclosporine 25 mg 01/20/17 10:00 01/22/17 09:12 Neoral PO 25 mg BID [facility] Administration Folic Acid 1 mg 01/20/17 10:00 01/22/17 09:11 Folic Acid - PO 1 mg DAILY [facility] Administration Metoprolol Succinate 25 mg 01/20/17 10:00 01/22/17 09:11 Toprol Xl - PO 25 mg BID [facility] Administration Multivit/Ca Carb/B Cmplx/FA/Prenat 1 tablet 01/20/17 10:00 01/22/17 09:11 Nephro-Latoya - PO 1 tablet DAILY [facility] Administration Multivitamins/Minerals 1 each 01/20/17 10:00 01/22/17 09:11 Theragran-M PO 1 each DAILY [facility] Administration Impression 1. ESRD 2. CHF 3. HTN 4. anxiety 5. anemia 6. liver transplant on cyclosporine Plan - pt tolerated HD yesterday - she has dialysis set up as outpt - abdominal discomfort is resolved - discussed with PMD - HD access permacath, 3.5 hrs, 1000 heparin bolus and 500 maintenance - will follow Dr Vargas
[2017-01-22 18:11] VITALS: BP 138/80; PULSE 70; TEMP 98.8
== END 2017-01-22 18:05 | DRG 291 ==
LOC: JER 20:36 → JERBED 01-20 03:28 → UNDOADMIN 01-20 03:52 → J4W 01-20 15:20
PROVIDERS: ADMIT Internal Medicine; ATTEND Internal Medicine
PROC: 5A1D90Z Performance of Urinary Filtration, Continuous, Greater than 18 hours Per Day (ICD-10-PCS; principal; 2017-01-21)
DX: I13.2 Hypertensive heart and chronic kidney disease with heart failure and with stage 5 chronic kidney disease, or end stage renal disease (principal); N18.6 End stage renal disease; Z94.4 Liver transplant status; D61.818 Other pancytopenia; I50.9 Heart failure, unspecified; Z99.2 Dependence on renal dialysis; D64.9 Anemia, unspecified; F41.9 Anxiety disorder, unspecified; R07.9 Chest pain, unspecified; E21.3 Hyperparathyroidism, unspecified; E55.9 Vitamin D deficiency, unspecified; E78.5 Hyperlipidemia, unspecified
CPT/HCPCS: 36415; 71020-TC; 80048; 80053; 80061; 82550; 83036; 83690; 83721; 83735; 83880; 84100; 84484; 85025; 85027; 86704; 86706; 86708; 86803; 87340; 93005; 93010; 93306-TC; 99284-25; J1644